=== PATIENT | female | born 1965 | race Caucasian/White ===

== ENCOUNTER 2017-07-11 12:15 | Emergency (ER) | payer BC ==
[2017-07-11 12:25] VITALS: BP 132/55; PULSE 83; TEMP 98.3; BMI 29.0
--- NOTE | 2017-07-11 12:50 | PDOC ---
History of Present Illness - General Chief Complaint: Allergic Reaction Stated Complaint: EYE PROBLEM Time Seen by Provider: 07/11/17 12:30 History Source: Patient Exam Limitations: No Limitations - History of Present Illness Initial Comments: 07/11/17 13:15 51-year-old female presents to the ED with complaints of irritation to the left eye including swelling to the upper aspect of left cheek. Patient states symptoms began about 2 days ago but has worsened in severity prompting her to come to the ER. Patient denies any injury to the eye, use of eye contacts, recent URI, dental abnormalities, change in hearing, headache or fever. Timing/Duration: getting worse Severity: mild Associated Symptoms: reports: denies symptoms Past History - Past Medical History Allergies/Adverse Reactions: Allergies Allergy/AdvReac Type Severity Reaction Status Date / Time No Known Allergies Allergy Verified 07/11/17 12:20 Home Medications: Ambulatory Orders Bacitracin Ophthalmic Oint - 0.5 inch OS BID #1 tube 07/11/17 Cephalexin [Keflex] 250 mg PO TID #21 capsule 07/11/17 COPD: No - Suicide/Smoking/Psychosocial Hx Smoking History: Never smoked Patient Lives Alone: No Lives with/in: spouse/SO Review of Systems - Review of Systems Able to Perform ROS?: Yes Constitutional: No: Symptoms Reported HEENTM: Yes: Eye Pain. No: Blurred Vision, Tearing, Recent change in vision, Cataracts, Ear Pain Integumentary: Yes: Other (left upper cheek swelling) Neurological: No: Symptoms reported Endocrine: No: Symptoms Reported Hematologic/Lymphatic: No: Symptoms Reported *Physical Exam - Vital Signs Last Vital Signs Temp Pulse Resp BP Pulse Ox 98.3 F 83 20 132/55 99 07/11/17 12:21 07/11/17 12:21 07/11/17 12:21 07/11/17 12:21 07/11/17 12:21 - Physical Exam General Appearance: Yes: Nourished, Appropriately Dressed. No: Apparent Distress HEENT: positive: EOMI, JOHNNIE, TMs Normal, Pharynx Normal, Other (Patient with small hordeolum measuring less than 0.25 to the inner aspect of left lower eyelid with a pinhead sized whitish center. Surrounding skin intact). negative : Pale Conjunctivae Integumentary: positive: Erythema (mild diffuse to left upper cheek with minimal edema involving the orbital floor region) Neurologic: positive: Motor Strength 5/5 (ambulatory) Medical Decision Making - Medical Decision Making 07/11/17 13:24 Patient with noted redness and mild swelling to the upper left cheek and lower eye without involvement of the upper or lower eyelid. Patient also noted hordeolum with whitish center. Patient will be treated with bacitracin ointment for the eye and Keflex for skin cellulitis. Patient also will be given supportive instructions and worsening symptoms to be aware of. *DC/Admit/Observation/Transfer Diagnosis at time of Disposition: Cellulitis of cheek Hordeolum Qualifiers: Hordeolum type: internum Laterality: left Eyelid: lower Qualified Code(s): H00.025 - Hordeolum internum left lower eyelid - Discharge Dispostion Disposition: HOME Condition at time of disposition: Good - Prescriptions Prescriptions: Bacitracin Ophthalmic Oint - 0.5 inch OS BID #1 tube Cephalexin [Keflex] 250 mg PO TID #21 capsule - Referrals Referrals: Marcus Garcia MD [Primary Care Provider] - - Patient Instructions Printed Discharge Instructions: DI for Orbital Cellulitis, DI for Hordeolum Additional Instructions: Affected area 4 times a day for at least 15 minutes of constant heat for the next 72 hours. Please use eye ointment as prescribed and take antibiotics as prescribed. If symptoms do not improve in the next 2-3 days. Please return to the ED for further follow-up. Otherwise follow up with her primary care physician. - Post Discharge Activity
== END 2017-07-11 12:54 | disposition home or self-care (01) ==
LOC: JERFT 12:15
DX: L03.211 Cellulitis of face (principal); H00.025 Hordeolum internum left lower eyelid
CPT/HCPCS: 99281-25

== ENCOUNTER 2017-11-25 09:08 | Emergency (ER) | payer BC ==
[2017-11-25 09:23] VITALS: BP 144/73; PULSE 94; TEMP 98.1; BMI 29.0
[2017-11-25] MEDS ORDERED: ALBUTEROL SO4 2.5/IPRATROPIUM 0.5 INH SOL 3 ML VIAL.NEB. NEB ONE ×2 (10:13→10:19)
--- NOTE | 2017-11-25 10:27 | PDOC ---
History of Present Illness - General Chief Complaint: Cold Symptoms Stated Complaint: COUGH Time Seen by Provider: 11/25/17 09:28 History Source: Patient Exam Limitations: No Limitations - History of Present Illness Timing/Duration: reports: just prior to arrival Severity: reports: mild, moderate Past History - Travel Traveled outside of the country in the last 30 days: No Close contact w/someone who was outside of country & ill: No - Past Medical History Allergies/Adverse Reactions: Allergies Allergy/AdvReac Type Severity Reaction Status Date / Time No Known Allergies Allergy Verified 11/25/17 09:14 Home Medications: Ambulatory Orders Albuterol Sulfate Inhaler - [Ventolin HFA Inhaler -] 1 - 2 inh PO Q4H #1 inhaler 11/25/17 COPD: No - Suicide/Smoking/Psychosocial Hx Smoking History: Never smoked Information on smoking cessation initiated: No Hx Alcohol Use: No Drug/Substance Use Hx: No Substance Use Type: None Review of Systems - Review of Systems Able to Perform ROS?: Yes Is the patient limited Macedonian proficient: Yes Constitutional: Yes: Symptoms Reported, See HPI, Chills, Loss of Appetite, Malaise. No: Fever HEENTM: Yes: Symptoms Reported, See HPI, Nose Congestion Respiratory: Yes: Symptoms reported, See HPI, Cough, Wheezing Musculoskeletal: Yes: Symptoms Reported, See HPI All Other Systems: Reviewed and Negative *Physical Exam - Vital Signs Last Vital Signs Temp Pulse Resp BP Pulse Ox 98.1 F 94 H 18 144/73 98 11/25/17 09:11 11/25/17 09:11 11/25/17 09:11 11/25/17 09:11 11/25/17 09:11 - Physical Exam General Appearance: Yes: Nourished, Appropriately Dressed, Apparent Distress, Mild Distress HEENT: positive: JOHNNIE, Normal ENT Inspection, TMs Normal (congested), Pharynx Normal, Nasal Congestion, Rhinorrhea, Sinus Tenderness Neck: positive: Supple, Lymphadenopathy (R), Lymphadenopathy (L). negative: Tender Respiratory/Chest: positive: Lungs Clear, Normal Breath Sounds Gastrointestinal/Abdominal: positive: Normal Bowel Sounds, Soft. negative: Tender Extremity: positive: Normal Capillary Refill, Normal Inspection Integumentary: positive: Normal Color, Dry, Warm, Pale Neurologic: positive: qm consultant II-XII NML intact, Fully Oriented, Alert, Normal Mood/ Affect, Normal Response, Motor Strength 01/02 *DC/Admit/Observation/Transfer Diagnosis at time of Disposition: Common cold virus - Discharge Dispostion Disposition: HOME Condition at time of disposition: Stable Admit: No - Referrals Referrals: Marcus Garcia MD [Primary Care Provider] - - Patient Instructions Printed Discharge Instructions: DI for Viral Upper Respiratory Infection -- Adult Additional Instructions: Rest, drink lots of fluids: Teas, water, soups, Pedialyte Saltwater gargles Steamy showers/seem to face break up mucus Avoid contact with others until fevers and cough resolved Lots of handwashing and good hygiene Continue [id number] medications for symptomatic relief Tylenol or Motrin for fever and pain Continue albuterol nebulizers every 4-6 hours for the next 2 days then as needed for continued cough Followup with private physician in one to 2 days Return to emergency department / pediatric hospital for worsened symptoms, fevers, dehydration - Post Discharge Activity Forms/Work/School Notes: Back to Work
== END 2017-11-25 10:32 | disposition home or self-care (01) ==
LOC: JERFT 09:08
PROC: 3E0F7GC Introduction of Other Therapeutic Substance into Respiratory Tract, Via Natural or Artificial Opening (ICD-10-PCS; principal; 2017-11-25)
DX: J00 Acute nasopharyngitis [common cold] (principal)
CPT/HCPCS: 99281-25

== ENCOUNTER 2017-11-27 16:16 | Emergency (ER) | payer BC ==
--- NOTE | 2017-11-27 16:20 | PDOC ---
Rapid Medical Evaluation Time Seen by Provider: 11/27/17 16:17 Medical Evaluation: Allergies Allergy/AdvReac Type Severity Reaction Status Date / Time No Known Allergies Allergy Verified 11/25/17 09:14 11/27/17 16:17 The patient presents with a chief complaint of: Cough. Pt. states that she was seen two days ago and given an inhaler for the cough. Reports little relief. Now complaining of pain and head pressure/headache from coughing. No fevers. Has not taken any medication for headache. Also taking dayquil and nyquil I have performed a brief in-person evaluation of this patient; Pertinent physical exam findings: ambulatory, in no respiratory distress I have ordered the following: nothing The patient will proceed to the ED for further evaluation. Discharge Disposition - Referrals Referrals: Marcus Garcia MD [Primary Care Provider] - - Patient Instructions - Post Discharge Activity
[2017-11-27 16:21] VITALS: BP 139/87; PULSE 94; TEMP 98.1; BMI 28.8
[2017-11-27] MEDS ORDERED: KETOROLAC TROMETHAMINE 60 MG/2 ML VIAL IM ONE (17:17)
[2017-11-27] MEDS ORDERED: KETOROLAC TROMETHAMINE 60 MG/2 ML VIAL ONE (17:25)
--- NOTE | 2017-11-27 17:28 | PDOC ---
History of Present Illness - General Chief Complaint: Headache Stated Complaint: FOLLOW UP Time Seen by Provider: 11/27/17 16:17 History Source: Patient Exam Limitations: No Limitations - History of Present Illness Initial Comments: 11/27/17 17:17 Patient is a 52-year-old female denies any significant medical history, seen in the emergency department 2 days ago for cough, was given albuterol inhaler patient still with persistent cough now when coughing has posterior occipital headache. Denies any sinus pain, no nasal congestion, no chest pain or shortness of breath. No dizziness, no photophobia, no visual disturbance. Pain is only reproducible when coughing to posterior occiput. Did take Tylenol with resolve of symptoms. Past Medical History: [Denies]. Allergies: No known allergies Medications: [Has been using albuterol when necessary] Family History: Non-contributory Social History: Denies smoking, alcohol use, or IVDU Review of Systems GENERAL/CONSTITUTIONAL: [No fever or chills. No weakness. No weight change.] HEAD, EYES, EARS, NOSE AND THROAT: [No change in vision. No ear pain or discharge. No sore throat. ] CARDIOVASCULAR: [No chest pain or shortness of breath.] RESPIRATORY: [No cough, wheezing, or hemoptysis.] GASTROINTESTINAL: [No nausea, vomiting, diarrhea or constipation. No rectal bleeding.] GENITOURINARY: [No dysuria, frequency, or change in urination.] MUSCULOSKELETAL: [No joint or muscle swelling or pain. No neck or back pain.] SKIN: [No rash or easy bruising.] NEUROLOGIC: [Occipital headache, no vertigo, loss of consciousness, or loss of sensation.] PSYCHIATRIC: [No depression or anxiety.] ENDOCRINE: [No increased thirst. No abnormal weight change.] HEMATOLOGIC/LYMPHATIC: [No anemia, easy bleeding, or history of blood clots.] ALLERGIC/IMMUNOLOGIC: [No hives or skin allergy. No latex allergy.] Physical Exam: GENERAL: [The patient is awake, alert, and fully oriented, in no acute distress. ] HEAD: [Normal with no signs of trauma.] EYES: [Pupils equal, round and reactive to light, extraocular movements intact, sclera anicteric, conjunctiva clear.] ENT: [Ears normal, nares patent, oropharynx clear without exudates. Moist mucous membranes. No uvula deviation. No frontal or maxillary sinus pressure or pain] NECK: [Normal range of motion, supple without lymphadenopathy, JVD, or masses.] LUNGS: [Breath sounds equal, clear to auscultation bilaterally. No wheezes, and no crackles.] HEART: [Regular rate and rhythm, normal S1 and S2 without murmur, rub or gallop. ] ABDOMEN: [Soft, nontender, normoactive bowel sounds. No guarding, no rebound. No masses. No bruising or abrasions] MUSCULOSKELETAL: [Normal range of motion, no edema. No clubbing or cyanosis. No cords, erythema, or tenderness. No CVA Tenderness with fist.] NEUROLOGICAL: [Cranial nerves II through XII grossly intact. Normal speech, normal gait. No pain to occiput on palpation] SKIN: [Warm, Dry, normal turgor, no rashes or lesions noted.] 11/27/17 17:19 11/27/17 17:28 Past History - Past Medical History Allergies/Adverse Reactions: Allergies Allergy/AdvReac Type Severity Reaction Status Date / Time No Known Allergies Allergy Verified 11/27/17 16:18 Home Medications: Ambulatory Orders Albuterol Sulfate Inhaler - [Ventolin HFA Inhaler -] 1 - 2 inh PO Q4H #1 inhaler 11/25/17 Naproxen [Naprosyn] 500 mg PO BID #20 tablet 11/27/17 COPD: No - Suicide/Smoking/Psychosocial Hx Smoking History: Never smoked Information on smoking cessation initiated: No Hx Alcohol Use: No Drug/Substance Use Hx: No Substance Use Type: None *Physical Exam - Vital Signs Last Vital Signs Temp Pulse Resp BP Pulse Ox 98.1 F 94 H 18 139/87 100 11/27/17 16:18 11/27/17 16:18 11/27/17 16:18 11/27/17 16:18 11/27/17 16:18 Medical Decision Making - Medical Decision Making 11/27/17 17:29 A/P: Patient with headache with cough, lungs are clear in auscultation pain to occiput only with coughing, was resolved with Tylenol. She did not take any pain medication today however did resolve symptoms. She with clinical signs of tension headache only reproducible with coughing will give Toradol and reevaluate. 11/27/17 18:07 Reports pain is resolved after Toradol will DC patient home on Naprosyn, tension headache, follow-up if any increased headache nausea vomiting, unsteady gait, no sensory deficits, or any other concerns. *DC/Admit/Observation/Transfer Diagnosis at time of Disposition: Tension headache - Discharge Dispostion Disposition: HOME Condition at time of disposition: Stable Admit: No - Prescriptions Prescriptions: Naproxen [Naprosyn] 500 mg PO BID #20 tablet - Referrals Referrals: Marcus Garcia MD [Primary Care Provider] - - Patient Instructions Printed Discharge Instructions: Tension Headache Additional Instructions: Increase fluid intake, Naprosyn for pain, if any increased headache, nausea vomiting, unsteady gait, photophobia, neurosensory deficits, or any other concerns return to ER - Post Discharge Activity Forms/Work/School Notes: Back to Work
== END 2017-11-27 18:09 | disposition home or self-care (01) ==
LOC: JERFT 16:16
PROC: 3E0233Z Introduction of Anti-inflammatory into Muscle, Percutaneous Approach (ICD-10-PCS; principal; 2017-11-27)
DX: G44.209 Tension-type headache, unspecified, not intractable (principal)
CPT/HCPCS: 99281-25

== ENCOUNTER 2020-06-20 21:06 | Emergency (ER) | payer BC ==
[2020-06-20 21:13] VITALS: BP 151/72; PULSE 86; TEMP 98; BMI 29.6
--- OUTSIDE RECORDS SUMMARY | 2020-06-20 21:25 | XMS ---
:1965 Author Organization [facility] Care Team Providers Name Role Phone ED STAFF PHYSICIAN Unavailable Unavailable ED STAFF PHYSICIAN, STAFF Unavailable Unavailable Re-disclosure Warning The records that you are about to access may contain information from federally- assisted alcohol or drug abuse programs. If such information is present, then the following federally mandated warning applies: This information has been disclosed to you from records protected by federal confidentiality rules (42 CFR part 2). The federal rules prohibit you from making any further disclosure of this information unless further disclosure is expressly permitted by the written consent of the person to whom it pertains or as otherwise permitted by 42 CFR part 2. A general authorization for the release of medical or other information is NOT sufficient for this purpose. The Federal rules restrict any use of the information to criminally investigate or prosecute any alcohol or drug abuse patient.The records that you are about to access may contain highly sensitive health information, the redisclosure of which is protected by Article 27-F of the [facility] Public Health law. If you continue you may haveaccess to information: Regarding HIV / AIDS; Provided by facilities licensed or operated by the [facility] Office of Mental Health; or Provided by the [facility] Office for People With Developmental Disabilities. If such information is present, then the following [facility] mandated warning applies: This information has been disclosed to you from confidential records which are protected by state law. State law prohibits you from making any further disclosure of this information without the specific written consent of the person to whom it pertains, or as otherwise permitted by law. Any unauthorized further disclosure in violation of state law may result in a fine or group home sentence or both. A general authorization for the release of medical or other information is NOT sufficient authorization for further disclosure. Encounters Encounter Providers Location Date Indications Data Source(s ) Emergency Attender: ED STAFF H 08/26/2019 [facility]: 01:46:00 PM EST [facility] STAFF ED STAFF - 08/26/2019 PHYSICIANAdmitter: 02:54:00 PM EST ED STAFF PHYSICIAN Patient discharged. Emergency Attender: ED STAFF H 08/12/2019 04:03:00 PM [facility] PHYSICIANAttender: STAFF ED EST - 08/12/2019 [facility] STAFF PHYSICIANAdmitter: ED 05:28:00 PM EST STAFF PHYSICIAN Patient discharged. Insurance Providers Payer Policy type Policy ID Covered Covered constitution party's Policy Pl an name / Coverage constitution party ID relationship to Conde Inf ormation type conde BC PPO [id number] SP [id number] O BLUE O [id number] 01 [id number] CROSS Problems, Conditions, and Diagnoses Code Display Name Description Problem Type Effective Dates Data Source(s) H10.011 Acute follicular ACUTE FOLLICULAR Diagnosis 08/26/2019 [facility] conjunctivitis, CONJUNCTIVITIS, 01:46:00 PM EST Medical Center right eye RIGHT EYE H57.89 OTHER SPECIFIED OTHER SPECIFIED Diagnosis 08/26/2019 [facility] DISORDERS OF EYE DISORDERS OF EYE 01:46:00 PM E [facility] AND ADNEXA AND ADNEXA J32.9 Chronic CHRONIC Diagnosis 08/12/2019 [facility] sinusitis, SINUSITIS, 04:03:00 PM EST Medical C enter unspecified UNSPECIFIED J40 Bronchitis, not BRONCHITIS, NOT Diagnosis 08/12/2019 [facility] specified as SPECIFIED 04:03:00 PM EST [facility] Center acute or chronic ACUTE OR CHRONIC R05 Cough COUGH Diagnosis 08/12/2019 [facility] 04:03:00 PM EST Medical C enter Results ID Date Data Source [id number] 12/24/2019 05:50:00 AM EDT [facility] Name Value Range Interpretation Description Data Sup porting Code Source(s) Document(s ) SARS [facility] CORONAVIRUS 2 RNA This lab was ordered by [facility] and reported by [facility]. ID Date Data Source [id number] 12/21/2019 01:20:00 PM EDT [facility] Name Value Range Interpretation Description Data Sup porting Code Source(s) Document(s ) SARS [facility] CORONAVIRUS 2 RNA This lab was ordered by [facility] and reported by [facility]. ID Date Data Source [id number] 12/18/2019 12:00:00 AM EDT [facility] Name Value Range Interpretation Code Description Data Kimberly rce(s) Supporting Document(s ) SARS CoV-2 [facility] (COVID-19) PCR This lab was ordered by [facility] and reported by [facility]. Procedure Social History Code Duration Value Status Description Data Source(s ) Smoking 08/26/2019 Denies Ever completed Denies Ever Smoked [facility] 02:05:00 PM EST Smoked Medical C enter Smoking 08/26/2019 Denies Ever completed Denies Ever Smoked [facility] 02:03:00 PM EST Smoked Medical C enter Smoking 08/26/2019 Denies Ever completed Denies Ever Smoked [facility] 01:59:00 PM EST Smoked Medical C enter Smoking 08/12/2019 Denies Ever completed Denies Ever Smoked [facility] 04:30:00 PM EST Smoked Medical C enter Smoking 08/12/2019 Denies Ever completed Denies Ever Smoked [facility] 04:25:00 PM EST Smoked Medical C enter Vital Signs ID Date Data Source UNK Name Value Range Interpretation Code Description Data Source(s) Diastolic blood 75 mm[Hg] 75 mm[Hg] [facility] Systolic blood 138 mm[Hg] 138 mm[Hg] [facility] Body temperature 36.433119 36.589703 [facility] Respiratory rate 18 /min 18 /min [facility] Oxygen saturation 98 % 98 % [facility] in Arterial blood [facility] by Pulse oximetry Heart rate 64 /min 64 /min [facility] Diastolic blood 87 mm[Hg] 87 mm[Hg] [facility] Systolic blood 168 mm[Hg] 168 mm[Hg] [facility] Body weight 75.947272 kg 75.513293 kg [facility] Body temperature 37.451644 37.052444 [facility] Respiratory rate 18 /min 18 /min [facility] Oxygen saturation 97 % 97 % [facility] Rola velez in Arterial blood [facility] Center by Pulse oximetry Heart rate 87 /min 87 /min [facility] Body height 167.827796 167.360555 cm [facility] Diastolic blood 85 mm[Hg] 85 mm[Hg] [facility] pressure Medical Center Systolic blood 151 mm[Hg] 151 mm[Hg] [facility] Body mass index 26.6 kg/m2 26.6 kg/m2 [facility] (BMI) [Ratio] Medical [facility] ter
--- NOTE | 2020-06-20 22:22 | PDOC ---
History of Present Illness - General Chief Complaint: Injury Stated Complaint: FALL Time Seen by Provider: 06/20/20 22:14 - History of Present Illness Initial Comments: 06/20/20 22:20 54-year-old female with a past medical history of dyslipidemia presents for evaluation of headache and facial pain after a fall. Patient was walking in the street when the sidewalk was uneven causing her to trip hitting her face.She denies loss of consciousness post injury nausea vomiting she does have a slight headache. Past History - Medical History Allergies/Adverse Reactions: Allergies Allergy/AdvReac Type Severity Reaction Status Date / Time No Known Allergies Allergy Verified 06/20/20 21:12 Home Medications: Ambulatory Orders Albuterol Sulfate Inhaler - [Ventolin HFA Inhaler -] 1 - 2 inh PO Q4H #1 inhaler 11/25/17 Apixaban [Eliquis] 5 mg PO BID #28 tablet 12/30/19 Ascorbic Acid [Vitamin C] 1,000 mg PO DAILY #30 tablet 12/30/19 Cholecalciferol (Vitamin D3) [Vitamin D3 -] 1,000 unit PO DAILY #30 tab 12/30/19 Pantoprazole Sodium [Protonix] 40 mg PO DAILY #30 tablet. 12/30/19 Prednisone 10 mg PO BID #120 tablet 12/30/19 Zinc Sulfate [Orazinc -] 220 mg PO DAILY #14 capsule 12/30/19 COPD: No - Reproductive History Is Patient Now?: No - Immunization History Immunization Up to Date: Yes - Psycho-Social/Smoking History Smoking History: Never smoked Have you smoked in the past 12 months: No - Substance Abuse Hx (Audit-C & DAST Scrn) How often the patient has a drink containing alcohol: Never Score: In Men: 4 or > Positive; In Women: 3 or > Positive: 0 Screen Result (Pos requires Nsg. Audit-10AR): Negative In the last yr the pt used illegal drug/Rx for NonMed reason: No Score: Yes response is considered Positive: 0 Screen Result (Positive result requires Nsg. DAST-10): Negative Review of Systems - Review of Systems ABD/GI: No: Nausea, Vomiting Neurological: Yes: Headache *Physical Exam - Vital Signs Last Vital Signs Temp Pulse Resp BP Pulse Ox 98.0 F 86 18 151/72 98 06/20/20 21:10 06/20/20 21:10 06/20/20 21:10 06/20/20 21:10 06/20/20 21:10 - Physical Exam General Appearance: Yes: Nourished, Appropriately Dressed. No: Apparent Distress HEENT: positive: Symmetrical Neck: positive: Supple Respiratory/Chest: negative: Respiratory Distress Musculoskeletal: positive: Other (Superficial abrasions on the lateral aspect of the right knee and right hand at the base of the thumb. Full range of motion bears weight on the extremity.) ED Treatment Course - RADIOLOGY Radiology Studies Ordered: Category Date Time Status FACIAL BONES CT W/O CONTRAST [CT] Stat CT Scan 06/20/20 22:[address] WITHOUT CONTRAST [CT] Stat CT Scan 06/20/20 22:19 Ordered Medical Decision Making - Medical Decision Making 06/20/20 22:21 X-rays of the right hand and thumb CAT scan of facial bones and head follow-up with overnight physician neurosurgical physician assistant patient was signed out Discharge - Discharge Information Problems reviewed: No Clinical Impression/Diagnosis: Facial contusion Condition: Stable - Follow up/Referral Referrals: Marcus Garcia MD [Primary Care Provider] - - Patient Discharge Instructions - Post Discharge Activity
--- NOTE | 2020-06-20 22:38 | PDOC ---
*Physical Exam - Vital Signs Last Vital Signs Temp Pulse Resp BP Pulse Ox 98.0 F 86 18 151/72 98 06/20/20 21:10 06/20/20 21:10 06/20/20 21:10 06/20/20 21:10 06/20/20 21:10 Medical Decision Making - Medical Decision Making 06/20/20 22:37 Briefly is a 54-year-old female status post trip and fall on sidewalk striking her face without loss of consciousness. Neuro exam normal Patient signed out to me by DEDRA Thomas pending CT head and facial bones Will reassess based on result CT head shows no acute intracranial abnormality CT facial bones is negative for orbital or facial fractures globes and orbits are intact Pt appears well and is safe and stable for discharge with strict return precautions including signs and symptoms requring immediate return to the ED Supportive care instructions explained and given to pt. Reasons to return emergently to ER explained and given. Importance of follow up with PMD and other specialists as indicated stressed to pt. Pt verbalized understanding of instructions. Pt to follow up with PMD in 2 days. Discharge - Discharge Information Problems reviewed: Yes Clinical Impression/Diagnosis: Facial contusion Qualifiers: Encounter type: initial encounter Qualified Code(s): S00.83XA - Contusion of other part of head, initial encounter Condition: Stable Disposition: HOME - Follow up/Referral Referrals: Marcus Garcia MD [Primary Care Provider] - - Patient Discharge Instructions Patient Printed Discharge Instructions: DI for Closed Head Injury - Post Discharge Activity
== END 2020-06-21 00:05 | disposition home or self-care (01) ==
LOC: JER 21:06 → JERFT 21:06 → JER 06-21 00:05
DX: S00.83XA Contusion of other part of head, initial encounter (principal)
CPT/HCPCS: 70450-TC; 70486-TC; 73130-TC-RT-FY; 99284-25

== ENCOUNTER 2022-12-02 11:22 | Emergency (ER) | payer BC ==
[2022-12-02 11:33] VITALS: BP 155/84; PULSE 71; RESP 18; TEMP 98.3; BMI 34.3
[2022-12-02] MEDS ORDERED: predniSONE 20 MG TABLET (UD) PO ONE (13:25)
[2022-12-02] MEDS ORDERED: diphenhydrAMINE HCL 25 MG CAPSULE (FP) PO ONE ×2 (13:25→13:36)
[2022-12-02] MEDS ORDERED: predniSONE 20 MG TABLET (UD) ONE (13:36)
== END 2022-12-02 16:05 | disposition home or self-care (01) ==
LOC: JERFT 11:22
DX: L25.9 Unspecified contact dermatitis, unspecified cause (principal)
CPT/HCPCS: 99283-25

== ENCOUNTER 2023-04-12 13:01 | Emergency (ER) | payer BC ==
[2023-04-12 13:06] VITALS: BP 157/60; PULSE 77; RESP 18; TEMP 98.7; BMI 29.0
[2023-04-12 14:22] LABS: BASO % 0.4 % (0-2.0); EOS % 2.7 % (0-4.5); HEMATOCRIT 42.4 % (32.4-45.2); MCH 30.2 pg (25.7-33.7); MCHC 33.1 g/dl (32.0-36.0); MEAN CELL VOLUME 91.2 fl (80-96); MEAN PLT VOLUME 7.9 fl (7.5-11.1); MONO % 9.6 % (3.8-10.2); NEUT % 57.3 % (42.8-82.8); PLATELET COUNT 219 10^3/uL (134-434); RBC 4.64 M/mm3 (3.60-5.2); RDW 12.6 % (11.6-15.6); WHITE BLOOD COUNT 5.9 K/mm3 (4.0-10.0)
[2023-04-12 14:35] LABS: POTASSIUM 4.7 mmol/L (3.5-5.1)
[2023-04-12 14:37] LABS: BLOOD UREA NITROGEN 18.9 mg/dL (7-18); CALCIUM 9.3 mg/dL (8.5-10.1)
[2023-04-12 14:41] LABS: CREATININE 0.9 mg/dL (0.55-1.3)
== END 2023-04-12 17:12 | disposition home or self-care (01) ==
LOC: JERFT 13:01
DX: R07.81 Pleurodynia (principal); R07.1 Chest pain on breathing; R05.9 Cough, unspecified; J40 Bronchitis, not specified as acute or chronic
CPT/HCPCS: 36415; 71046-TC-FY; 71275-TC; 80048; 85025; 85379; 99285-25; Q9967